=== PATIENT | male | born 1955 | race Caucasian/White ===

== ENCOUNTER 2017-06-05 10:53 | Inpatient (IN) | payer BC ==
[2017-05-11 11:14] VITALS: BMI 31.0
--- NOTE | 2017-05-11 11:47 | PAT Medication Instructions ---
Service Date May 11, 2017. Current Home Medication List Amoxicillin & Pot Clavulanate (Augmentin 875-125 mg), 1 TAB PO BID Ezetimibe (Zetia), 10 MG PO QAM Ferrous Sulfate (Kp Ferrous Sulfate), 1 TAB PO QAM Folic Acid (Folic Acid), 1 MG PO QAM Lisinopril (Zestril), 10 MG PO QAM Methotrexate (Methotrexate), 7 TAB PO SAT Naproxen Ds (Naprosyn Ds), 550 MG PO BID PRN for Pain Pantoprazole (Protonix), 40 MG PO DAILY PRN for STOMACH Rosuvastatin Calcium (Crestor), 5 MG PO QAM Tadalafil (Cialis), 10 MG PO UD Tamsulosin Hcl (Flomax), 0.4 MG PO QAM Zolpidem Tartrate (Ambien Cr), 6.25 MG PO HS PRN for Sleep Medication Instructions For Your Scheduled Surgery - Held for surgery: Methotrexate (Methotrexate), 7 TAB PO SAT Naproxen Ds (Naprosyn Ds), 550 MG PO BID PRN for Pain - Hold the following medications the morning of surgery: Tadalafil (Cialis), 10 MG PO UD Ferrous Sulfate (Kp Ferrous Sulfate), 1 TAB PO QAM Folic Acid (Folic Acid), 1 MG PO QAM Lisinopril (Zestril), 10 MG PO QAM - Take the following medications the morning of surgery with a sip of water OTHERWISE NOTHING TO EAT OR DRINK AFTER MIDNIGHT: Tamsulosin Hcl (Flomax), 0.4 MG PO QAM Rosuvastatin Calcium (Crestor), 5 MG PO QAM Ezetimibe (Zetia), 10 MG PO QAM Pantoprazole (Protonix), 40 MG PO DAILY PRN for STOMACH - Take the following medications as scheduled the night before surgery: Zolpidem Tartrate (Ambien Cr), 6.25 MG PO HS PRN for Sleep If you have any questions please call us at [phone] or [phone] or [phone]
--- NOTE | 2017-05-11 12:25 | DIAGNOSTIC IMAGING REPORT ---
CHEST 2 VIEWS ROUTINE CLINICAL HISTORY: Preoperative evaluation. COMPARISON STUDY: No previous studies for comparison. FINDINGS: Lung volumes are normal. No pneumothorax or pleural effusion is present. There is no consolidation to suggest pneumonia. Pulmonary vascularity is normal. There is mild cardiomegaly. IMPRESSION: 1. No acute cardiopulmonary findings. 2. Mild cardiomegaly. Electronically signed by: Papa Issa M.D. 05/11/2017 12:23 PM Dictated Date/Time: 05/11/2017 12:22 PM
[2017-05-11 12:39] LABS: BASO % 0.3 %; BASO ABS # 0.02 K/uL (0-0.2); EOS ABS # 0.22 K/uL (0-0.5); HEMATOCRIT 48.6 % (42-52); HEMOGLOBIN 17.1 g/dL (14.0-18.0); IG# 0.03 K/uL (0.00-0.02); LYMPH % 14.8 %; LYMPH ABS # 1.07 K/uL (1.2-3.4); MEAN CELL VOLUME 83.8 fL (80-100); MEAN CORPUSCULAR HEMOGLOBIN 29.5 pg (25-34); MEAN CORPUSCULAR HGB CONC 35.2 g/dl (32-36); MEAN PLATELET VOLUME 9.9 fL (7.4-10.4); MONO % 9.7 %; NEUT % 71.8 %; NEUT ABS # 5.21 K/uL (1.4-6.5); PLATELET COUNT 105 K/uL (130-400); RED CELL DISTRIBUTION WIDTH CV 14.8 % (11.5-14.5); RED CELL DISTRIBUTION WIDTH SD 45.4 fL (36.4-46.3); WHITE BLOOD COUNT 7.25 K/uL (4.8-10.8)
[2017-05-11 12:52] LABS: INR 0.9 (0.9-1.1); PTT PATIENT 25.5 SECONDS (21.0-31.0)
[2017-05-11 13:07] LABS: ALBUMIN 3.2 gm/dl (3.4-5.0); CALCIUM 8.7 mg/dl (8.5-10.1); CREATININE 1.01 mg/dl (0.60-1.40); POTASSIUM 4.2 mmol/L (3.5-5.1)
[2017-05-11 13:12] LABS: TOTAL PROTEIN 6.9 gm/dl (6.4-8.2)
--- NOTE | 2017-06-03 07:48 | History and Physical ---
History & Physical Date Jun 03, 2017. Chief Complaint bilateral knee pain History of Present Illness The patient is a 61 year old male with complaints of bilateral knee pain. has tried injections and scopes and nothing seems to be helping him. Pt is ready for bilateral tka. Additional History Hepatic Disease: No Endocrine Disorder: No Kidney Disease: No Hypertension: Yes Heart Disease: No Bleeding Tendencies: No Infectious Diseases: No Allergies Coded Allergies: No Known Allergies (Unverified , 05/11/17) Home Medications Scheduled Amoxicillin & Pot Clavulanate (Augmentin 875-125 mg), 1 TAB PO BID Ezetimibe (Zetia), 10 MG PO QAM Ferrous Sulfate (Kp Ferrous Sulfate), 1 TAB PO QAM Folic Acid (Folic Acid), 1 MG PO QAM Lisinopril (Zestril), 10 MG PO QAM Methotrexate (Methotrexate), 7 TAB PO SAT Rosuvastatin Calcium (Crestor), 5 MG PO QAM Tadalafil (Cialis), 10 MG PO UD Tamsulosin Hcl (Flomax), 0.4 MG PO QAM Scheduled PRN Naproxen Ds (Naprosyn Ds), 550 MG PO BID PRN for Pain Pantoprazole (Protonix), 40 MG PO DAILY PRN for STOMACH Zolpidem Tartrate (Ambien Cr), 6.25 MG PO HS PRN for Sleep Physical Examination Skin: warm/dry, no rash Eyes: normal inspection, EOMI, sclerae normal ENT: normal ENT inspection, pharynx normal Head: normocephalic, atraumatic Neck: supple, no adenopathy, trachea midline Respiratory/Chest: lungs clear, normal breath sounds, no respiratory distress Cardiovascular: regular rate, rhythm, no edema, no murmur Abdomen / GI: normal bowel sounds, non tender Back: normal inspection Extremities: normal inspection, normal range of motion, + pertinent finding Neurologic/Psych: no motor/sensory deficits, alert, normal reflexes, oriented x 3 Addiitonal Comments: pain with rom of both knees. Diagnosis djd bilateral knees. Plan of Treatment plan is to admit and undergo bilateral tka and home vs rehab for post op discharge.
[~2017-06-05] VITALS: Ht 182.9 cm; Wt 105.6 kg
[2017-06-05] VITALS (7 sets, daily range): BP systolic 125–132; BP diastolic 79–88; PULSE 85–107; TEMP 36.3–36.7; O2SAT 95–99; Ht 182.9 cm; Wt 105.6 kg
[2017-06-05] MEDS: TRANEXAMIC ACID INJ 1,000 MG in SYRINGE 0 ML IV SCH ×2 (06:00→06:30)
[~2017-06-05 10:53] MED LIST: ACETAMINOPHEN 500 MG TAB PO SCH; AMOX875T PO; ATROPINE SULFATE 0.1 MG/ML 5ML SYR IV PRN; BUPIVACAINE 0.25% 30 ML VIAL ONE; BUPIVACAINE 0.5 % 5 MG/1 ML PF 10ML VIAL ONE; CEFAZOLIN 2000MG IV PUSH 10 ML IV SCH; CeleBREX 200 MG CAP PO SCH; DEXAMETHASONE 4 MG TAB PO SCH; EZET10TA63 PO; EpHEDrine SULFATE INJ 50 MG/ML AMP IV PRN; FAMOTIDINE 20 MG TAB PO SCH; FENTANYL CITRATE INJ 50 MCG/1 ML 2 ML VIAL IV PRN; FERR1TAB13 PO; FLV1 PO; LACTATED RINGER'S 1000ML 1,000 ML IV SCH; LACTATED RINGER'S 1000ML 500 ML IV SCH; LACTATED RINGER'S 1000ML IV SCH; LISI-461 PO; METH2.5T PO; METOCLOPRAMIDE HCL 10 MG TAB PO SCH; NAPR-1168 PO; ONDANSETRON INJ 2 MG/ML 2 ML VIAL IV PRN; PANT40TA PO; ROSU5TAB PO; TADA10TA PO; TAMS0.4C38 PO; ZOLP6.252 PO
[2017-06-05] MEDS ORDERED: MIDAZOLAM HCL 1 MG/ML 2ML VIAL ONE ×4 (11:10→13:28)
[2017-06-05] MEDS ORDERED: LIDOCAINE HCL 2% 2 ML VIAL (20MG/ML) ONE (11:10)
[2017-06-05] MEDS ORDERED: PROPOFOL IV EMULSION 10 MG/ML 20 ML VIAL IV ONE ×4 (11:10→14:31)
[2017-06-05 11:32] LABS: HEMATOCRIT 46.6 % (42-52); HEMOGLOBIN 16.9 g/dL (14.0-18.0); MEAN CELL VOLUME 82.5 fL (80-100); MEAN CORPUSCULAR HEMOGLOBIN 29.9 pg (25-34); MEAN PLATELET VOLUME 9.5 fL (7.4-10.4); PLATELET COUNT 161 K/uL (130-400); RED CELL DISTRIBUTION WIDTH CV 13.7 % (11.5-14.5); WHITE BLOOD COUNT 5.73 K/uL (4.8-10.8)
--- NOTE | 2017-06-05 11:41 | History & Physical Bridge Note ---
H&P Re-Evaluation Bridge Note: I have examined the patient, reviewed the History & Physical and in the interval since the performance of the History & Physical I have noted the following changes of clinical significance: No changes noted
[2017-06-05 11:47] LABS: MEAN CORPUSCULAR HGB CONC 36.3 g/dl (32-36)
[2017-06-05] MEDS ORDERED: ORTHO JOINT ANESTHETIC ONE (12:06)
[2017-06-05] MEDS ORDERED: POVIDONE-IODINE OP SOLN 30 ML BTL ONE (12:06)
[2017-06-05] MEDS ORDERED: BACITRACIN 50000 UNIT VIAL ONE ×2 (12:06→13:56)
[2017-06-05] MEDS ORDERED: SODIUM CHLORIDE 0.9% INJ 10 ML VIAL ONE (13:10)
[2017-06-05] MEDS ORDERED: KETAMINE HCL INJ 50 MG/ML 10 ML VIAL ONE (13:10)
[2017-06-05] MEDS: ROPIVACAINE 5MG/ML 30 ML 150 MG, BUPIVACAINE 0.5% MPF INJ 30 ML, EpINEphrine HCL INJ 0.... INFIL SCH ×16 (14:35→14:37)
--- NOTE | 2017-06-05 14:43 | [facility] Post Operative Brief Note ---
Immediate Operative Summary Operative Date Jun 05, 2017. Pre-Operative Diagnosis Bilateral knees degenerative joint disease Post-Operative Diagnosis Bilateral knees degenerative joint disease Procedure(s) Performed Bilateral Total Knee Arthroplasty Surgeon Dr. Salazar Vice President Network Surgeon(s) Santy Rodriguez PA-C Estimated Blood Loss 20cc Findings Consistent with Post-Op Diagnosis Specimens A: Left knee bone and tissue B: Right knee bone and tissue Drains None Anesthesia Type Spinal Complication(s) none Disposition Accompanied Pt To Recover: no Disposition: Recovery Room / PACU
[2017-06-05] MEDS ORDERED: ONDANSETRON INJ 2 MG/ML 2 ML VIAL IV PRN (15:00)
[2017-06-05] MEDS ORDERED: ZOLPIDEM TARTRATE 5 MG TAB PO PRN (15:00)
[2017-06-05] MEDS ORDERED: MAGNESIUM HYDROXIDE SUSP 30 ML UDC PO PRN (15:00)
[2017-06-05] MEDS ORDERED: ALUMINUM/MAGNESIUM/SIMETH (MAALOX MAX) 30 ML UDC PO PRN (15:00)
[2017-06-05] MEDS ORDERED: BISACODYL 10 MG SUPP PR PRN (15:00)
[2017-06-05] MEDS ORDERED: SOD PHOSPHATE/SOD BIPHOSPHATE ENEMA 132 ML BTL PR PRN (15:00)
--- NOTE | 2017-06-05 15:03 | [facility] Operative Report ---
Operative Report Operative Date Jun 05, 2017. Pre-Operative Diagnosis Bilateral knees degenerative joint disease Post-Operative Diagnosis Bilateral knees degenerative joint disease Procedure(s) Performed Bilateral Total Knee Arthroplasty Surgeon Dr. Salazar Tractor Engine Assembler Surgeon(s) Santy Rodriguez PA-C Estimated Blood Loss 20cc Findings as above Specimens A: Left knee bone and tissue B: Right knee bone and tissue Complication(s) None Disposition Recovery Room / PACU Description of Procedure IMPLANTS USED: [employer] journey 2-knee size 8 cemented femoral component , a size 6 tibial component, a size 9 PS insert with size 38 all polythene patella for both knees INDICATIONS: Mr. Shah is a pleasant (male/) who has unfortunately failed all forms of conservative measures. Therefore, they have decided to undergo elective surgical intervention. All risks and benefits of the surgery were discussed with the patient and the family in entirety. PROCEDURE: The patient was brought to the operating room and properly identified by myself, anesthesia, and staff. Patient was given a spinal anesthesia and placed on the operating table in the supine position. Tourniquets were applied to the bilateral upper thigh. The leg was then prepped and draped in usual sterile fashion. We made a standard midline approach over the patella and dissected down through the subcutaneous tissue to identify the capsule and performed a medial capsulotomy with the patella everted and the knee flexed.The patient matched implant was then put onto the femur. The femur measured to be a size 8. This was then put into place. We made the appropriate cuts and then placed a retractor behind the proximal tibia to retract anteriorly. We then placed the patient matched knee implant on the tibia. It measured to be a size 6. A size 6 guide was then put in place. We used the tibial punch then put the trial components into place. We had very good range of motion, excellent stability, and excellent patella tracking. We removed the trial components and irrigated the wound. We impacted the components in place using antibiotic cement. All excess cement was removed. We then irrigated the wound once more. We closed the capsule with 0 PDS suture , deep dermis and 2-0 Vicryl, and finally the skin with alesia. A sterile dressing was applied. The patient was taken to the recovery room in stable condition. In this procedure described is for both the left and right knee. Patient was a bilateral knee replacement. Due to the complex nature of the procedure, the entire surgery was performed with the operational assistance of [the (VJ)]. The primary teaching assistant was under direct supervision, was involved in the actual performance of all aspects of the surgical procedure including hemostasis, tissue retraction and incision, instrument management, patient positioning, and wound closure. I attest to the content of the Intraoperative Record and any orders documented therein. Any exceptions are noted below.
--- NOTE | 2017-06-05 15:47 | Anesthesiology Progress Note ---
Anesthesia Post Op Note Date & Time Jun 05, 2017 at 15:47 Vital Signs Pain Intensity: 0 Vital Signs Past 12 Hours Date Time Temp Pulse Resp B/P (MAP) Pulse Ox O2 Delivery O2 Flow Rate FiO2 06/05/17 15:30 86 16 133/78 98 Nasal Cannula 2 06/05/17 15:22 36.2 92 16 121/87 98 Nasal Cannula 2 06/05/17 12:06 36.7 97 Room Air Notes Mental Status: alert / awake / arousable, participated in evaluation Pt Amnestic to Procedure: Yes Nausea / Vomiting: adequately controlled Pain: adequately controlled Airway Patency, RR, SpO2: stable & adequate BP & HR: stable & adequate Hydration State: stable & adequate Anesthetic Complications: no major complications apparent
[2017-06-05] MEDS: SODIUM CHLORIDE 0.9% 1000ML 1,000 ML IV SCH (16:36)
[2017-06-05] MEDS: CEFAZOLIN IV 2,000 MG in SYRINGE 0 ML IV SCH (20:55)
[2017-06-05] MEDS: ACETAMINOPHEN 500 MG TAB PO SCH (20:56)
[2017-06-05] MEDS: ASPIRIN 81 MG ECTAB PO SCH (20:57)
[2017-06-05] MEDS: DOCUSATE SODIUM 100 MG CAP PO SCH (20:57)
[2017-06-05] MEDS: SENNA 8.6 MG TAB PO SCH (20:58)
[2017-06-05] MEDS ORDERED: TRANEXAMIC ACID INJ 1,000 MG in SODIUM CHLORIDE 0.9% 100ML 100 ML IV SCH (21:00)
[2017-06-05] MEDS: OXYCODONE HCL IR 5 MG TAB (IMMEDIATE RELEASE) PO PRN (21:02)
[2017-06-06] MEDS: OXYCODONE HCL IR 5 MG TAB (IMMEDIATE RELEASE) PO PRN ×3 (01:14→19:29)
[2017-06-06] MEDS: SODIUM CHLORIDE 0.9% 1000ML 1,000 ML IV SCH ×2 (01:16→11:06)
[2017-06-06 03:28] VITALS: BP 135/80; PULSE 90; TEMP 36.6; O2SAT 98
[2017-06-06] MEDS: CEFAZOLIN IV 2,000 MG in SYRINGE 0 ML IV SCH (03:36)
[2017-06-06] MEDS: ACETAMINOPHEN 500 MG TAB PO SCH ×3 (03:37→20:31)
[2017-06-06 05:30] VITALS: BP 151/79; PULSE 85; TEMP 36.6; O2SAT 96
[2017-06-06 07:00] VITALS: BP 130/81; PULSE 77; TEMP 36.4; O2SAT 95
[2017-06-06 07:11] LABS: HEMATOCRIT 39.3 % (42-52); MEAN CELL VOLUME 81.7 fL (80-100); MEAN CORPUSCULAR HEMOGLOBIN 29.1 pg (25-34); MEAN CORPUSCULAR HGB CONC 35.6 g/dl (32-36); MEAN PLATELET VOLUME 9.9 fL (7.4-10.4); PLATELET COUNT 172 K/uL (130-400); RED CELL DISTRIBUTION WIDTH CV 13.5 % (11.5-14.5); RED CELL DISTRIBUTION WIDTH SD 40.4 fL (36.4-46.3); WHITE BLOOD COUNT 14.49 K/uL (4.8-10.8)
[2017-06-06] MEDS ORDERED: DEXAMETHASONE INJ 10 MG in SYRINGE 0 ML IV ONE (07:30)
--- NOTE | 2017-06-06 07:39 | Anesthesiology Progress Note ---
Anesthesia Post Op Note Date & Time Jun 06, 2017 at 07:38 Vital Signs Pain Intensity: 4.0 Vital Signs Past 12 Hours Date Time Temp Pulse Resp B/P (MAP) Pulse Ox O2 Delivery O2 Flow Rate FiO2 06/06/17 05:30 36.6 85 18 151/79 (103) 96 Nasal Cannula 2.0 06/06/17 03:28 36.6 90 18 135/80 (98) 98 Room Air 06/06/17 00:00 Room Air 06/05/17 22:59 36.5 107 18 132/80 (97) 96 Room Air 06/05/17 20:38 36.3 104 19 125/88 (100) 96 Room Air Notes Mental Status: alert / awake / arousable, participated in evaluation Pt Amnestic to Procedure: Yes Nausea / Vomiting: adequately controlled Pain: adequately controlled Airway Patency, RR, SpO2: stable & adequate BP & HR: stable & adequate Hydration State: stable & adequate Neuraxial Anesthesia: was administered, sensory block resolved Anesthetic Complications: no major complications apparent
--- NOTE | 2017-06-06 09:09 | Orthopedic Progress Note ---
Orthopedic Progress Note Date of Service Jun 06, 2017. Subjective Post OP Day: 1 Reports: feeling well, Denies: complaints Additional Notes: No complaints. Hoping to go to [facility] as inpt stay for a few days. Objective calves soft nontender, N/V intact, dressing C/D/I, A&O x3, toes mobile Date Time Temp Pulse Resp B/P (MAP) Pulse Ox O2 Delivery O2 Flow Rate FiO2 06/06/17 07:15 Room Air 06/06/17 07:00 36.4 77 16 130/81 (97) 95 Room Air 06/06/17 05:30 36.6 85 18 151/79 (103) 96 Nasal Cannula 2.0 06/06/17 03:28 36.6 90 18 135/80 (98) 98 Room Air 06/06/17 00:00 Room Air 06/05/17 22:59 36.5 107 18 132/80 (97) 96 Room Air 06/05/17 20:38 36.3 104 19 125/88 (100) 96 Room Air 06/05/17 18:03 36.4 90 19 126/80 (95) 95 Room Air 06/05/17 17:03 36.4 93 18 126/80 (95) 98 Nasal Cannula 2.0 06/05/17 16:33 36.3 85 18 128/85 (99) 99 Nasal Cannula 2.0 06/05/17 16:03 36.6 85 18 125/79 (94) 98 Nasal Cannula 2.0 06/05/17 16:03 98 Nasal Cannula 2.0 06/05/17 16:03 98 Nasal Cannula 2.0 06/05/17 15:50 91 18 122/83 98 Nasal Cannula 2 06/05/17 15:40 36.4 86 16 107/81 98 Nasal Cannula 2 06/05/17 15:30 86 16 133/78 98 Nasal Cannula 2 06/05/17 15:22 36.2 92 16 121/87 98 Nasal Cannula 2 06/05/17 12:06 36.7 97 Room Air Laboratory Results 24 Hours: Test 06/05/17 11:23 06/06/17 06:47 Hematocrit 46.6 % 39.3 % Hemoglobin 16.9 g/dL 14.0 g/dL Assessment & Plan Assessment: POD 1 s/p Bilateral TKA Plan: PT/OT today Plan for HS [place] if approved Inhouse Planning Pain Management: PO Tylenol, Oxy IR DVT Prophylaxis: TEDs, SCDs, ASA Discharge Planning Discharge Planning: rehab hospital
[2017-06-06] MEDS: DOCUSATE SODIUM 100 MG CAP PO SCH ×2 (09:39→20:31)
[2017-06-06] MEDS: ASPIRIN 81 MG ECTAB PO SCH ×2 (09:40→20:31)
[2017-06-06] MEDS: FERROUS SULFATE 325 MG TAB PO SCH (09:40)
[2017-06-06] MEDS: ROSUVASTATIN CALCIUM 5 MG TAB PO SCH (09:40)
[2017-06-06] MEDS: TAMSULOSIN HCL 0.4 MG CAP PO SCH (09:40)
[2017-06-06] MEDS: EZETIMIBE 10MG TAB PO SCH (09:41)
[2017-06-06] MEDS: LISINOPRIL 20 MG TAB PO SCH (09:41)
[2017-06-06 11:55] VITALS: BP 145/89; PULSE 90; TEMP 36.6; O2SAT 96
[2017-06-06 16:12] VITALS: BP 129/79; PULSE 90; TEMP 36.6; O2SAT 96
[2017-06-06] MEDS: SENNA 8.6 MG TAB PO SCH (21:01)
[2017-06-06 22:53] VITALS: BP 129/80; PULSE 82; TEMP 36.4; O2SAT 96
[2017-06-07] MEDS: OXYCODONE HCL IR 5 MG TAB (IMMEDIATE RELEASE) PO PRN ×3 (00:07→10:56)
[2017-06-07] MEDS: ACETAMINOPHEN 500 MG TAB PO SCH ×2 (04:54→12:55)
[2017-06-07 06:58] VITALS: BP 119/78; PULSE 82; TEMP 36.5; O2SAT 97
--- NOTE | 2017-06-07 08:10 | Orthopedic Progress Note ---
Orthopedic Progress Note Date of Service Jun 07, 2017. Subjective Post OP Day: 2 Reports: feeling well Additional Notes: Having more pain this AM. Took meds ealier this AM. No other complaints. Objective calves soft nontender, N/V intact, incision C/D/I, A&O x3, toes mobile Date Time Temp Pulse Resp B/P (MAP) Pulse Ox O2 Delivery O2 Flow Rate FiO2 06/07/17 07:40 Room Air 06/07/17 00:05 Room Air 06/06/17 22:53 36.4 82 18 129/80 (96) 96 Room Air 06/06/17 16:12 36.6 90 16 129/79 (96) 96 Room Air 06/06/17 15:45 Room Air 06/06/17 11:55 36.6 90 16 145/89 (107) 96 Room Air Assessment & Plan Assessment: POD 2 s/p Bilateral TKA Plan: PT/OT today Plan for HS [place] today if approved. If denied, plan for HHPT Inhouse Planning Pain Management: PO Tylenol, Oxy IR DVT Prophylaxis: TEDs, SCDs, ASA Discharge Planning Discharge Planning: rehab hospital
[2017-06-07] MEDS: EZETIMIBE 10MG TAB PO SCH (08:48)
[2017-06-07] MEDS: LISINOPRIL 20 MG TAB PO SCH (08:48)
[2017-06-07] MEDS: ROSUVASTATIN CALCIUM 5 MG TAB PO SCH (08:48)
[2017-06-07] MEDS: TAMSULOSIN HCL 0.4 MG CAP PO SCH (08:48)
[2017-06-07] MEDS: FERROUS SULFATE 325 MG TAB PO SCH (08:48)
[2017-06-07] MEDS: DOCUSATE SODIUM 100 MG CAP PO SCH (10:56)
[2017-06-07] MEDS: ASPIRIN 81 MG ECTAB PO SCH (10:56)
[2017-06-07] MEDS ORDERED: RXC5 PO (13:12)
[2017-06-07] MEDS ORDERED: ASPEC81 PO (13:12)
[2017-06-07] MEDS ORDERED: ACET-24 PO (13:12)
--- NOTE | 2017-06-07 13:15 | Discharge Instructions ---
Discharge Instructions Date of Service Jun 07, 2017. Admission Reason for Admission: Bilateral Knee Osteoarthritis Discharge Discharge Diagnosis / Problem: Bilateral Knee Djd Discharge Goals Goal(s): Decrease discomfort, Improve function, Increase independence Activity Recommendations Activity Limitations: per Instructions/Follow-up section Weightbearing Status: Left weightbearing (as tolerated), Right weightbearing ( as tolerated) . Instructions / Follow-Up Instructions / Follow-Up Dr. Salazar Total Knee Replacement Discharge Instructions Silverlon dressing stays on for seven days. It must be changed if it is soaked . This can be replaced with gauze and an YESICA Wrap. Otherwise if not soaked, it stays on for 7 days. Patients my shower after 2 days if the Silverlon is on because it is waterproof, but not Spa proof. If the silver one had to be removed then patient should wait 5 days to shower. Quick showers, not Spa Time! After 7 days, please wipe wound with gauze and peroxide once daily. ICE and ELEVATE constantly. If a drain is in place, it is removed when less than 10cc for 2 consecutive 8 hr shifts. IF ALTON / Prevena device in place, please see the instruction sheet. Also, every Home Nursing Agency, Home PT, and Rehab is aware how this works. If your home nurse or therapist says they don't know want this is, have them call you [facility] or the restaurant and bar manager right away, it is meant to protect and help your incision heal faster. Please read the Do's and Don'ts sheet. This paper and the Do's and Don'ts are the most important. The rest of your paperwork from hospital is redundant and or confusing. This is the info I want you to take to heart. I typically give you 5 prescriptions. Some are Eprescribed to your pharmacy already. They are: 1. Oxycodone or some form of a narcotic pain pill. Please take. Most important. 2. Aspirin - this is for blood clot prevention, please take. You may have them prescribe something stronger than aspirin, if so, you won't have a script for aspirin daily. 3. Tylenol 4. Zofran-this is for nausea, take if you need. 5. Celebrex-helps with inflammation, if not covered by insurance, then use ibuprofen 600 mg, 2 to 3 times a day. If any problems or concerns, please call [facility] (Or Sujatha Solares if she is your coordinator) FIRST. DO not go to the ER unless directed by your [facility] Physician or it's an absolute emergency. Our phone numbers are located all throughout the your [facility] packet. Current Hospital Diet Patient's current hospital diet: Regular Diet Discharge Diet Recommended Diet: Regular Diet Procedures Procedures Performed: Bilateral Total Knee Arthroplasty Pending Studies Studies pending at discharge: no Medical Emergencies . Who to Call and When: Medical Emergencies: If at any time you feel your situation is an emergency, please call 911 immediately. . Non-Emergent Contact Non-Emergency issues call your: Surgeon Call Non-Emergent contact if: temperature is above 101.5, your pain is not controlled, your pain is worsening, wound has increased drainage, wound has increased redness . "Provider Documentation" section prepared by Santy Rodriguez. . VTE Core Measure Inpt VTE Proph given/why not?: Other Anticoagulation, T.E.D. Stockings, SCD's [place] Drug Monitoring Program Search Results: patient reviewed within database, no issues identified
[2017-06-07 13:53] VITALS: BP 119/78; PULSE 82; TEMP 36.5; O2SAT 97
== END 2017-06-07 15:30 | disposition home health service (06) | DRG 462 ==
LOC: C.ACU 10:53 → C.3E 11:40 → ENRESERV 15:32
PROVIDERS: ADMIT Orthopaedic Surgery; ATTEND Orthopaedic Surgery
PROC: 0SRD0J9 Replacement of Left Knee Joint with Synthetic Substitute, Cemented, Open Approach (ICD-10-PCS; principal; 2017-06-05 13:15)
PROC: 0SRC0J9 Replacement of Right Knee Joint with Synthetic Substitute, Cemented, Open Approach (ICD-10-PCS; principal; 2017-06-05 13:15)
DX: M17.0 Bilateral primary osteoarthritis of knee (principal); I10 Essential (primary) hypertension; E78.5 Hyperlipidemia, unspecified; E66.9 Obesity, unspecified; Z68.31 Body mass index [BMI] 31.0-31.9, adult; Z79.2 Long term (current) use of antibiotics; Z79.899 Other long term (current) drug therapy